=== PATIENT | female | born 1950 | race Caucasian/White ===

== ENCOUNTER 2018-01-15 00:21 | Day surgery (SDC) | payer MEDICARE, OTHER ==
[~2018-01-15] VITALS: Ht 154.9 cm; Wt 50.8 kg
[~2018-01-15 00:21] MED LIST: CALC500T42 PO; EST3 PO; IBU600 PO; LIDOCAINE/SOD BICARB 8.4% SYR ID ONE; MELO-207 PO; NAPR220C12 PO; NORMOSOL R SOLN(*) 1000 ML BAG 1,000 ML IV PRN; OMEP-153 PO
[2018-01-15] MEDS ORDERED: LIDOCAINE/SOD BICARB 8.4% SYR ID ONE (05:30)
[2018-01-15] MEDS ORDERED: NORMOSOL R SOLN(*) 1000 ML BAG 1,000 ML IV PRN (05:30)
--- NOTE | 2018-01-15 07:03 | Post Operative Progress Note ---
Post Operative Progress Note Date: January 15, 2018 Time: 10:39 Surgeon: abiola Anesthesia: dr duncan Pre-Op Diagnosis: screening colonoscopy Post-Op Diagnosis: sigmoid diverticulosis Procedure(s): colonoscopy ADRIENNE RASHID MD January 15, 2018 07:02
--- NOTE | 2018-01-15 07:03 | Short(Outpt) Discharge Summary ---
Discharge Summary Reason for Hosp/Final Diag: (1) Encounter for screening colonoscopy Hospital Course & Plan: sigmoid diverticulosis Departure Discharge to: Home Discharge Instructions Home Meds Reported Medications Meloxicam (MELOXICAM) 15 Mg Tablet, 20 MG PO QDAY 01/07/18 Naproxen Sodium (ALEVE) 220 Mg Capsule, 220 MG PO QAM, CAPSULE 01/07/18 Calcium (Calcium) 500 Mg Tablet, 500 MG PO BID, 0 Refills 10/04/08 Omeprazole (Omeprazole) 20 Mg Tablet.dr, 20 MG PO BID, 0 Refills 10/04/08 Diet: High Fiber Activity: As Tolerated ADRIENNE RASHID MD January 15, 2018 07:03
[2018-01-15] MEDS ORDERED: PROPOFOL EMUL(*) 10MG/ML 20 ML 40 ML ONE (07:11)
[2018-01-15 08:32] VITALS: BP 137/96
[2018-01-15 10:40] VITALS: BP 110/68
[2018-01-15 10:56] VITALS: BP 121/71
[2018-01-15 11:08] VITALS: BP 132/75
[2018-01-15 11:09] VITALS: BP 130/76
--- NOTE | 2018-01-15 16:52 | OPERATIVE REPORT 1 ---
EVENT DATE: January 15, 2018 SURGEON: Brendan Goddard MD ANESTHESIOLOGIST: Jai Mendoza MD ANESTHESIA: Sedation. PREOPERATIVE DIAGNOSIS Screening colonoscopy. POSTOPERATIVE DIAGNOSIS Sigmoid diverticulosis. PROCEDURE PERFORMED Colonoscopy. DESCRIPTION OF PROCEDURE Patient was placed in the left lateral decubitus position and given intravenous sedation. Rectal exam was unremarkable. Flexible colonoscope was inserted and passed to the cecum. Ileocecal valve and base of the cecum were identified. Scope was slowly withdrawn. Care was taken to look behind the haustral folds. No abnormalities were noted in the cecum, right colon, transverse, or descending colon. She had multiple diverticula in the sigmoid colon. No evidence of diverticulitis. Rectum was normal. Scope was retroflexed. That appeared to be normal. Patient tolerated the procedure well. No apparent complication. The patient should have a repeat colonoscopy in 10 years. GILBERTO
== END 2018-01-15 11:20 | disposition home or self-care (01) ==
LOC: OR 00:21
PROVIDERS: ATTEND Surgery
DX: Z12.11 Encounter for screening for malignant neoplasm of colon (principal); K57.30 Diverticulosis of large intestine without perforation or abscess without bleeding
CPT/HCPCS: 00812; G0121; J2704